=== PATIENT | female | born 1985 | race Caucasian/White ===

== ENCOUNTER → 2020-11-08 11:13 | Outpatient (POV) | payer SELFPAY | PROVIDERS: Visit Provider Dermatology | DX: Z00.00 Encounter for general adult medical examination without abnormal findings (principal) ==

== ENCOUNTER 2022-11-04 08:29 | Outpatient (CLI) | payer OTHER, SELFPAY ==
[2022-11-04 09:53] VITALS: BP 0/0; PULSE 0; RESP 0; TEMP -17.7; TEMP 0
== END 2022-11-04 09:54 | disposition left against medical advice (07) ==
LOC: UTC 08:47 → UTC.OUT 10:28
PROVIDERS: PCP Nurse Practitioner
DX: J02.9 Acute pharyngitis, unspecified (principal); R05.9 Cough, unspecified